=== PATIENT | female | born 1980 | race Caucasian/White ===

== ENCOUNTER 2024-12-28 19:39 | Emergency (ER) | payer OTHER, SELFPAY ==
[2024-12-28 19:47] VITALS: BP 144/99; PULSE 91; RESP 18; TEMP 36.7; O2SAT 100
--- NOTE | 2024-12-28 19:51 | ED.FEMALEGU ---
HPI - Female Genitourinary General Chief complaint: Urogenital-Female Stated complaint: UTI Time Seen by Provider: 12/28/24 19:52 Source: patient and RN notes reviewed Mode of arrival: ambulatory Limitations: no limitations History of Present Illness HPI Narrative: 44-year-old female presents to the [facility] with complaints of burning, urgency, frequency with urination that started on Wednesday. Did take an knrl-lfj-allodye medication that helps symptoms, symptoms were better yesterday, returned today. Did take azo prior to arrival. Onset (ago): day(s) (2) Related Data Allergies Allergy/AdvReac Type Severity Reaction Status Date / Time No Known Allergies Allergy Verified 12/28/24 19:41 Review of Systems Review of Systems: All systems reviewed & are unremarkable except as noted in HPI and below Constitutional: Constitutional: Reports no additional constitutional complaints ENT: Reports system reviewed and no additional complaints, except as documented Cardiovascular: Cardiovascular: Reports no additional cardiovascular complaints, Denies chest pain and Denies dyspnea Respiratory: Respiratory: Reports no additional respiratory complaints, Denies chest congestion, Denies cough and Denies dyspnea Genitourinary: Genitourinary: Reports as per HPI Musculoskeletal: Musculoskeletal: Reports no additional musculoskeletal complaints Integumentary/Breasts: Skin/Breast: Reports system reviewed and no additional complaints, except as docu PMFSH Comments At the time of my signature, I reviewed and agree with the nursing past medical, surgical, social, and family history. There is no relevant family history pertinent to the patient complaint. Exam Const: General: cooperative, healthy appearing, comfortable, no acute distress, well developed, alert and well nourished Nutritional Appearance: well nourished Orientation/consciousness: patient oriented x3 Limitations: no limitations HENMT: Head: normal to inspection Mouth: Yes Normal oral and palatal mucosa present, Yes lip normal, Yes tongue normal and Yes moist mucous membranes Eyes: General: appearance normal, both eyes and all related structures Alignment and Position: alignment normal Neck: Neck: normal visual inspection, full ROM, no lymphadenopathy and no meningeal signs Chest: Chest palpation & inspection: normal inspection of the chest Resp: Effort & Inspection: normal respiratory effort and able to speak in complete sentences Auscultation: clear to auscultation bilaterally, no crackles, no rales, no rhonchi and no wheezes Cardio: Rate: regular rate GI: GI Palp: No abdominal tenderness : General: Yes no CVA tenderness Skin: General skin exam: normal color and no rashes or lesions noted Neuro: General: patient oriented x3, gait normal, moves all extremities and no meningeal signs Cognition (Neuro): normal cognition Speech: normal speech Gait exam (Neuro): Normal gait present Extrem: General: normal to inspection, full ROM, capillary refill normal and normal gait Psych: Appearance: grossly normal and well kempt Mental Status: mental status grossly normal Speech and movement: Normal speech and movement present and Clear speech present Affect: normal affect Attitude: cooperative Course Course Level of Care: Express Care Visit Vital Signs Vital signs: Vital Signs Temperature 98.1 F 12/28/24 19:47 Pulse Rate 91 12/28/24 19:47 Respiratory Rate 18 12/28/24 19:47 Blood Pressure 144/99 H 12/28/24 19:47 Pulse Oximetry 100 12/28/24 19:47 Oxygen Delivery Room Air 12/28/24 19:47 Temperature 98.1 F 12/28/24 19:47 Pulse Rate 91 12/28/24 19:47 Respiratory Rate 18 12/28/24 19:47 Blood Pressure 144/99 H 12/28/24 19:47 Pulse Oximetry 100 12/28/24 19:47 Oxygen Delivery Room Air 12/28/24 19:47 Reviewed MDM - Female Genitourinary MDM Narrative Medical decision making narrative: Patient sitting in exam. Patient is nontoxic, vitals stable. Patient presents with urgency burning and frequency with urination. Started on Wednesday. Took nhdo-ugn-gdwjtmp medicine. Better on Wednesday. Symptoms returned today. Denies fevers. Unable to do urine dip due to patient taking azo just prior to arrival Will prescribe Macrobid, send culture Patient is appropriate for outpatient treatment with close follow-up Discharge instructions reviewed with patient, as well as provided in writing per nursing staff. The instructions also include specific and strict return/GO TO THE ER as well as f/u information. All questions have been answered, and the patient deny any further questions with discharge and discharge plan. Some parts of this dictation were generated by voice recognition software and may contain typographical and/or grammatical inaccuracies. Differential Diagnosis Differential diagnosis: Likely urinary tract infection and cystitis Critical Care Time Critical Care Time Critical Care Time: No Discharge Plan Discharge Clinical Impression: Dysuria Patient Disposition: Home Condition: Stable Instructions: Antibiotic Form, Urinary Tract Infection in Women (DC), Dysuria (ED) Additional Instructions: Increased water intake Take Tylenol as needed for pain Take antibiotic as prescribed You have been prescribed an antibiotic. Your urine will be sent to our lab for a culture. If at that time a bacteria grows that is not covered by the antibiotic prescribed you will be notified. Follow-up with primary care For new or worsening symptoms go directly to the emergency room Patient Language: Slovak Prescriptions: New nitrofurantoin monohyd/m-cryst [Macrobid] 100 mg capsule 100 mg PO Q12H 5 Days Qty: 10 0RF Rx Instructions: must administer with a meal/food Follow-up/Referrals: PHYSICIAN,REVERBERATORY FURNACE OPERATOR [Primary Care Provider, Internal Medicine] Time of Disposition: 19:58
--- OUTSIDE RECORDS SUMMARY | 2024-12-28 21:19 | XMS_ITS | Encounter Summary ---
Author Organization [facility] Address 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
--- OUTSIDE RECORDS SUMMARY | 2024-12-28 21:19 | XMS_ITS | Data Portability ---
Author Organization [employer], [facility] Address [address] [address] Care Team Providers Care Police And Fire Dispatcher Name Role Phone LILIA GONCALVES Primary Care Provider Assessment No assessment recorded. Plan of Treatment Reminders Order Date Submit Date Provider Last Modified By Organization Details Last Modified Time Details Appointments None recorded. Lab None recorded. Referral None recorded. Procedures injection/a spiration joint/bursa (PROC) 2013 014 [email or web address] Not available 4 15:00:01 Surgeries None recorded. Imaging x-ray, cervical spine - Rm 5 2013 014 [email or web address] Not available 4 16:21:38 MRI, shoulder - r/o RTC 2013 014 BERNADETTE Not available 4 14:13:44 ultrasonic guidance for needle placement 2013 014 [email or web address] Not available 4 15:00:01 Medication Orders Depo-Medrol 40 mg/mL suspension for injection 2013 014 Not available 7 09:44:48 Patient TargetsNo targets recorded. Patient InstructionsNo instructions recorded. Reason for Referral None Reported. Results Created Date Observation Date Name Description Value Unit Range Abnormal Flag Note LastModifiedBy Organization Detail LastModifiedTime 06/09/19 14 06/08/2013 imagi ng/di agnos tic resul t No observ ation [email or web address] [address], [place], [address], 06/09/2013 08:37:11 07/12/19 14 07/10/2013 MRI, shoul charley No observ ation record ed. [email or web address] Not Available 2013 14:23:57 Result Notes None recorded. Problems Name Problem SNOMED Code Status Onset Date Resolution Date Notes Provider Name and Address Organization Details Recorded Time Pain of shoulder region 62930116 Active Binta Lamasckel null, [facility] [employer] [facility], [facility] 4 10:50:56 Joint pain in ankle and foot Active Binta Brockel null, [facility] [employer] [facility], [facility] 4 08:55:05 Tarsal tunnel syndrome 66647255 Active Bintaprashant Lamasckbarrera null, [facility], [facility] 4 10:42:14 Shoulder joint pain 254663372 Active Binta Emery null, [employer] [facility], [facility] 4 08:55:05 Neck pain 58123764 Active Padmini Kim [facility], [employer] [facility], [facility] 4 10:50:10 Problem Notes None recorded. Procedures Surgical History Date Name Laterality Status Provider Name and Address Organization Details Recorded Time 10/18/2013 Other completed Darnell Cid [facility] 12/10/2016 09:43:43 Imaging Results None recorded. Procedure Notes None recorded. Medical Equipment None Reported. Allergies No known drug allergies Medications Name Sig Start Date Stop Date Status Note LastModified by Organization Details LastModified Time compounded medication apply 1-2 gms to affected area 3-4 times daily. rub in well for 1-2 mins 12/10 completed Not Available Not Available Not Available Depo-Medrol 40 mg/mL suspension for injection Take by injection route. 12/10 completed Not Available Not Available Not Available baclofen (bulk) 100 % powder 12/10 completed Not Available Not Available Not Available azithromyci n 250 mg tablet 12/10 completed Not Available Not Available Not Available fluconazole 150 mg tablet 12/10 completed Not Available Not Available Not Available clomiphene citrate 50 mg tablet 12/10 completed Not Available Not Available Not Available Claritin 10 mg tablet Take 0.5 tablets every 24 hours by oral route. 12/10 completed Not Available Not Available Not Available metronidazo le 0.75 % (37.5 mg/5 gram) vaginal gel 12/10 completed Not Available Not Available Not Available Anucort-HC 25 mg suppository 12/10 completed Not Available Not Available Not Available metronidazo le 500 mg tablet 12/10 completed Not Available Not Available Not Available ciprofloxac in 250 mg tablet 12/10 completed Not Available Not Available Not Available valacyclovi r 500 mg tablet 12/10 completed Not Available Not Available Not Available ciprofloxac in 500 mg tablet 12/10 completed Not Available Not Available Not Available sulfamethox azole 800 mg-trimetho prim 160 mg tablet 12/10 completed Not Available Not Available Not Available progesteron e 50 mg/mL intramuscul ar oil 12/10 completed Not Available Not Available Not Available triamcinolo ne acetonide 0.1 % dental paste 12/10 completed Not Available Not Available Not Available chorionic gonadotropi n, human 10,000 unit IM powder for solution 12/10 completed Not Available Not Available Not Available triamcinolo ne acetonide 0.1 % topical ointment 12/10 completed Not Available Not Available Not Available dexamethaso ne 0.75 mg tablet 12/10 completed Not Available Not Available Not Available etodolac 500 mg tablet Take 1 tablet twice a day by oral route. 12/10 completed Not Available Not Available Not Available Estrace 0.01% (0.1 mg/gram) vaginal cream 12/10 completed Not Available Not Available Not Available Woodbine 3 Fish Oil capsule Take 2 capsules twice a day by oral route. 12/10 completed Not Available Not Available Not Available Ovidrel 250 mcg/0.5 mL subcutaneou s syringe 12/10 completed Not Available Not Available Not Available Follistim AQ 600 unit/0.72 mL subcutaneou s cartridge 12/10 completed Not Available Not Available Not Available nitrofurant oin monohydrate /macrocryst als 100 mg capsule 12/10 completed Not Available Not Available Not Available Menopur 75 unit subcutaneou s solution 12/10 completed Not Available Not Available Not Available Reclipsen (28) 0.15 mg-0.03 mg tablet 12/10 completed Not Available Not Available Not Available Vitamin 12/10 completed Not Available Not Available Not Available Calcium 600 + D(3) 12/10 completed Not Available Not Available Not Available Vitals Date Recorded Body height Body mass index (BMI) Body weight Heart rate Systolic And Diastolic Provider Name and Address Organization Details Last Updated DateTime 12/10/2016 162.56 cm 24 kg/m2 54565.93 g 75 /min 113/72 mm[Hg] Darnell Cid [employer] 12/10/2016 09:39:34 Social History Question Answer Notes LastModified by Organizat ion Details LastModified Time Tobacco Smoking Status Never Smoker Darnell Cid [employer] 04/13/2013 08:54:57 Do You Have An Advance Directive? No Information not available 04/13/2013 Auto Related Injury? No Information not available 04/13/2013 What Is Your Level Of Caffeine Consumption? Heavy Information not available 04/13/2013 How Much Tobacco Do You Chew? None Information not available 04/13/2013 Diabetes No Information no t available 04/13/2013 What Type Of Diet Are You Following? REGULAR Information not available 04/13/2013 Education 4 Year College Informatio n not available 04/13/2013 Who Is Your Employer? [employer]. Information not available 04/13/2013 Which Of Your Hands Is Dominant? Right Information not available 04/13/2013 Hard Of Hearing Or Deaf In One Or Both Ears? No Information not available 04/13/2013 High Blood Pressure No Information not available 04/13/2013 High Cholesterol No Informat ion not available 04/13/2013 Hobbies/Activiti es Crossfit, Hot Yoga, Running Information not available 04/13/2013 Single Or Multi-level Home/work? Multi Level Home Information not available 04/13/2013 Legally Blind In One Or Both Eyes? No Information not available 04/13/2013 Live Alone Or With Others? With Others Information not available 04/13/2013 Marital Status Informatio n not available 04/13/2013 What Was The Date Of Your Most Recent Tobacco Screening? 12/10/2016 Information not available 09/15/2018 How Many Children Do You Have? 0 Information not available 04/13/2013 If Injured, Is Litigation Ongoing? No Information not available 04/13/2013 What Is Your Parents' Marital Status? Information not available 04/13/2013 Performs Monthly Self-breast Exam? No Information not available 04/13/2013 Do You Use Protection During Sex? No Information not available 04/13/2013 Seat Belts Used Routinely Yes Information not available 04/13/2013 Are You Sexually Active? Yes Information not available 04/13/2013 Number Of Sexual Partners 1 Information not available 04/13/2013 Smoke Alarm In Home Yes Information not available 04/13/2013 How Much Tobacco Do You Smoke? No Information not available 04/13/2013 What Types Of Sporting Activities Do You Participate In? Running, Yoga Information not available 12/10/2016 General Stress Level Low Information not available 04/13/2013 Do You Use Sunscreen Routinely? No Information not available 04/13/2013 Work Related Injury? No Information not available 04/13/2013 Sex: Unknown Functional Status Question Answer Note LastModified by Organizat ion Details LastModified Time What is your level of alcohol consumption? Occasional Information not available 04/13/2013 Are you currently employed? 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 Moderate Information not available 04/13/2013 Mental Status None recorded. Family History Relationship Description Onset Age of this Age Resolved Age Notes LastModified by Organization Details LastModified Time Maternal Grandmother Alzheimer's disease 78 Not available 2013 08:54:02 Paternal Grandfather Arthritis 80 Not available 03/26 08:54:02 Paternal Grandfather Heart disease Not available 2013 08:54:02 Paternal Grandmother Heart disease Not available 2013 08:54:02 Paternal Grandmother Diabetes mellitus 60 83 Not available 2013 08:54:02 Medical History Condition Response HIV or AIDS N Coronary Artery Disease N Gout N Kidney Stones N Hyperthyroidism N Hernia N Head Trauma/Injury N Hypothyroidism N Lung Disease N Blood Clots N COPD N Depression N Pacemaker N Anxiety Disorder N Arthritis N Cancer N Stroke N Leg or Foot Ulcers N Neck Injury N High Cholesterol N Liver Disease N Rheumatoid Arthritis N Fibromyalgia N Headaches N Kidney Disease N Heart Problems N Migraines N Thyroid Problems N Anemia N Multiple Sclerosis N Ulcers N Heart Attack ([place]) N Diabetes N Bleeding Disorder N Seizures/Epilepsy N Tuberculosis N Urinary Tract Infection N Back Problems N Diverticulitis N Asthma N Lupus N Peripheral Vascular Disease N Sleep Disorder N GERD/Reflux N Hepatitis N Aneurysm N Heart Disease N Pulmonary Embolism N Hypertension N Osteoporosis N Gynecological HistoryNo gynecological history recorded. Obstetrics History GPAL:G 0 P 0 0 0 0 Immunizations Vaccine Type Date Status Note Provider Nam e and Address Organization Details Recorded Time DTaP 6 completed Darnell Cid [employer] 12/10/2016 09:43:56 Influenza, split virus, trivalent, preservative 6 completed [employer]ellsathya [employer] 12/10/2016 09:43:56 Influenza, split virus, trivalent, preservative 3 completed Darnell [employer] 12/10/2016 09:43:56 Past Encounters Encounter ID Performer Location Encounter Start Date Encounter Closed Date Diagnosis/Indication Diagnosis SNOMED-CT Code Diagnosis ICD10 Code Diagnosis IMO Codes Diagnosis Note [id number] Harley Gill MD [facility] [address] [place] [address] 04/13/2013 08:50:49 04/13/2013 10:04:11 Pain of shoulder region 77212557 Joint pain in ankle and foot 057559802 [id number] Harley Gill MD [facility] [address] [place] [address] 04/19/2013 08:38:42 04/19/2013 09:30:04 Tarsal tunnel syndrome 12134080 [id number] Harley Gill MD [facility] [address] [place] [address] 05/24/2013 08:37:22 05/24/2013 09:27:08 Shoulder joint pain 551328113 Joint pain in ankle and foot 136074608 [id number] Harley Gill MD [facility] [address] [place] [address] 07/05/2013 08:59:37 07/05/2013 16:56:56 Pain of shoulder region 08297346 [id number] Harley Gill MD [facility] [address] [place], [place] [address] 08/08/2013 13:56:30 08/08/2013 15:00:28 Pain of shoulder region 87545453 [id number] Harley Gill MD [facility] [address] [place] [address] 09/19/2013 09:48:29 09/19/2013 11:34:50 Neck pain 55049752 [id number] Harley Gill MD [facility] [address] [place] [address] 12/10/2016 09:16:54 12/10/2016 12:11:13 Health Concerns Section Related Observation LastModified by Organization Detai ls LastModified Time None Recorded Concern Status LastModified by Organization Details LastModified Time None Recorded Advance Directives Directive N: Payers Insurance Date Sequence Insurance Name Policy Number Policy Kent Covered Member ID Kent Member ID Guarantor Name 12/10/2016 1 [facility] [id number] Maria C Vaughn [id number] Maria C Vaughn OBGyn Episode No OBEpisode recorded.
--- OUTSIDE RECORDS SUMMARY | 2024-12-28 21:19 | XMS_ITS | Data Portability ---
Author Organization [facility], Main Office Address [address] [place] [address] Assessment No assessment recorded. Plan of Treatment Reminders Order Date Submit Date Provider Last Modified By Organization Details Last Modified Time Details Appointments None recorded. Lab BORIS (antinucl ear antibodie s) screen, serum [address] (Lab), [address] [place], [address], 3 08:11:11 lipid panel, serum [address] (Lab), [address] [place], [address], 3 08:11:11 TSH, serum or plasma [address] (Lab), [address] [place], [address], 3 08:11:11 CMP, serum or plasma [address] (Lab), [address] [place], [address], 3 08:11:11 glycohemo globin, total, blood [address] (Lab), [address] [place], [address], 3 08:11:11 CBC w/ auto diff [address] (Lab), [address] [place], [address], 3 08:11:10 vitamin B12, serum [address] (Lab), [address] [place], [address], 3 08:11:11 Referral None recorded. Procedures None recorded. Surgeries None recorded. Imaging None recorded. Medication Orders None recorded. Patient TargetsNo targets recorded. Patient Instructions Encounter Date Encounter Id Patient Instructions Last Modified By Organization Details Last Modified Time 12/01/2022 [id number] Fu in 1 mo for fatigue, labs, family history of dm, colon ca, etc. Not available 12/01/2022 15:16:46 Reason for Referral None Reported. Results Created Date Observation Date Name Description Value Unit Range Abnormal Flag Note LastModifiedBy Organization Detail LastModifiedTime 12/22/1912/25/2022 LIPID PANEL , STAND EMEKA cholesterol, total 133 mg/dL <200 normal Not Available [facility] [employer] [address] [address] [place], [address], 12/25/2022 12:56:17 12/22/19 23 12/25/2022 LIPID PANEL , STAND EMEKA HDL cholesterol 36 mg/dL > or = 50 low Not Available [employer] [address] [address] [place], [address], 12/25/2022 12:56:17 12/22/19 23 12/25/2022 LIPID PANEL , STAND EMEKA triglyceride s 69 mg/dL <150 normal Not Available [employer] [address] [address] [place], [address], 12/25/2022 12:56:17 12/22/19 23 12/25/2022 LIPID PANEL , STAND EMEKA LDL-choleste rol 82 mg/dL _(yanick c) normal Refer ence range : <100 Kip able range <100 mg/dL for prima ry preve ntion ; <70 mg/dL for patie nts with CHD or diabe tic patie nts with > or = 2 CHD risk facto rs. LDL-C is now calcu lated using the Iveth n-Hop kins calcu josianebritta n, which is a valid ated novel metho d provi ding murray r accur acy than the Fried karo equat ion in the estim ation of LDL-C . Iveth garcia SS et al. TARAS. 2013; 310(1 9): 2061- 206 (http ://ed ucati on.Qu estDi Kurani [employer]. com/f aq/FA Q164) Not Available [facility] [address] [address] [place], [address], 12/25/2022 12:56:17 12/22/1912/25/2022 LIPID PANEL , STAND EMEKA chol/HDLC ratio 3.7 (calc ) <5.0 normal Not Available [address] [address] [place], [address], 12/25/2022 12:56:17 12/22/1912/25/2022 LIPID PANEL , STAND EMEKA non HDL cholesterol 97 mg/dL _(yanick c) <130 normal For patie nts with diabe ricardo plus 1 major ASCVD risk facto r, treat ing to a non-H DL-C goal of <100 mg/dL (LDL- C of <70 mg/dL ) is consi dered a thera peuti c optio n. Not Available [employer] [address] [address] [address], [place], [address], 12/25/2022 12:56:17 12/22/1912/25/2022 COMPR EHENS GLENN METAB OLIC PANEL glucose 95 mg/dL 65-99 normal Fasti ng refer ence inter marco Not Available [facility] [address] [address] [address], [place], [address], 12/25/2022 12:56:18 12/22/1912/25/2022 COMPR EHENS GLENN METAB OLIC PANEL urea nitrogen (BUN) 7 mg/dL 7-25 normal Not Available [address], [address], 12/25/2022 12:56:18 12/22/19 23 12/25/2022 COMPR EHENS GLENN METAB OLIC PANEL creatinine 0.71 mg/dL 0.50-0 .99 normal Not Available [address], [address], 12/25/2022 12:56:18 12/22/19 23 12/25/2022 COMPR EHENS GLENN METAB OLIC PANEL eGFR 109 mL/mi n/1.7 3m2 > or = 60 normal Not Available [address], [address], 12/25/2022 12:56:18 12/22/19 23 12/25/2022 COMPR EHENS GLENN METAB OLIC PANEL BUN/creatini ne ratio SEE NOTE: (calc ) 6-22 Not Repor yodit: BUN and Creat inine are withi n refer ence range . Not Available [address], [address], 12/25/2022 12:56:18 12/22/19 23 12/25/2022 COMPR EHENS GLENN METAB OLIC PANEL sodium 140 mmol/ L 135-14 6 normal Not Available [address], [address], 12/25/2022 12:56:18 12/22/19 23 12/25/2022 COMPR EHENS GLENN METAB OLIC PANEL potassium 3.8 mmol/ L 3.5-5. 3 normal Not Available [address], [address], 12/25/2022 12:56:18 12/22/19 23 12/25/2022 COMPR EHENS GLENN METAB OLIC PANEL chloride 104 mmol/ L 98-110 normal Not Available [address], [address], 12/25/2022 12:56:18 12/22/19 23 12/25/2022 COMPR EHENS GLENN METAB OLIC PANEL carbon dioxide 28 mmol/ L 20-32 normal Not Available [address], [address], 12/25/2022 12:56:18 12/22/19 23 12/25/2022 COMPR EHENS GLENN METAB OLIC PANEL calcium 8.8 mg/dL 8.6-10 .2 normal Not Available [address], [address], 12/25/2022 12:56:18 12/22/19 23 12/25/2022 COMPR EHENS GLENN METAB OLIC PANEL protein, total 7.1 g/dL 6.1-8. 1 normal Not Available [address], [address], 12/25/2022 12:56:18 12/22/19 23 12/25/2022 COMPR EHENS GLENN METAB OLIC PANEL albumin 4.2 g/dL 3.6-5. 1 normal Not Available [address], [address], 12/25/2022 12:56:18 12/22/19 23 12/25/2022 COMPR EHENS GLENN METAB OLIC PANEL globulin 2.9 g/dL_ (calc ) 1.9-3. 7 normal Not Available [address], [address], 12/25/2022 12:56:18 12/22/19 23 12/25/2022 COMPR EHENS GLENN METAB OLIC PANEL albumin/glob ulin ratio 1.4 (calc ) 1.0-2. 5 normal Not Available [address], [address], 12/25/2022 12:56:18 12/22/19 23 12/25/2022 COMPR EHENS GLENN METAB OLIC PANEL bilirubin, total 0.3 mg/dL 0.2-1. 2 normal Not Available [address], [address], 12/25/2022 12:56:18 12/22/19 23 12/25/2022 COMPR EHENS GLENN METAB OLIC PANEL alkaline phosphatase 72 U/L 31-125 normal Not Available [address] [address] [place], [address], 12/25/2022 12:56:18 12/22/19 23 12/25/2022 COMPR EHENS GLENN METAB OLIC PANEL AST 14 U/L 10-30 normal Not Available [address], [address], 12/25/2022 12:56:18 12/22/19 23 12/25/2022 COMPR EHENS GLENN METAB OLIC PANEL ALT 8 U/L 6-29 normal Not Available [address], [address], 12/25/2022 12:56:18 12/22/19 23 12/25/2022 CBC (INCL UDES DIFF/ PLT) white blood cell count 9.7 thous and/u L 3.8-10 .8 normal Not Available [address], [address], 12/25/2022 12:56:19 12/22/1912/25/2022 CBC (INCL UDES DIFF/ PLT) red blood cell count 3.91 catalina on/uL 3.80-5 .10 normal Not Available [address], [address], 12/25/2022 12:56:19 12/22/19 23 12/25/2022 CBC (INCL UDES DIFF/ PLT) hemoglobin 11.1 g/dL 11.7-1 5.5 low Not Available [address], [address], 12/25/2022 12:56:19 12/22/19 23 12/25/2022 CBC (INCL UDES DIFF/ PLT) hematocrit 33.9 % 35.0-4 5.0 low Not Available [address], [address], 12/25/2022 12:56:19 12/22/19 23 12/25/2022 CBC (INCL UDES DIFF/ PLT) MCV 86.7 fL 80.0-1 00.0 normal Not Available [address], [address], 12/25/2022 12:56:19 12/22/19 23 12/25/2022 CBC (INCL UDES DIFF/ PLT) MCH 28.4 pg 27.0-3 3.0 normal Not Available [address], [address], 12/25/2022 12:56:19 12/22/19 23 12/25/2022 CBC (INCL UDES DIFF/ PLT) MCHC 32.7 g/dL 32.0-3 6.0 normal Not Available [address], [address], 12/25/2022 12:56:19 12/22/19 23 12/25/2022 CBC (INCL UDES DIFF/ PLT) RDW 12.3 % 11.0-1 5.0 normal Not Available [address], [address], 12/25/2022 12:56:19 12/22/19 23 12/25/2022 CBC (INCL UDES DIFF/ PLT) platelet count 312 thous and/u L 140-40 0 normal Not Available [address], [address], 12/25/2022 12:56:19 12/22/1912/25/2022 CBC (INCL UDES DIFF/ PLT) MPV 11.1 fL 7.5-12 .5 normal Not Available [address], [address], 12/25/2022 12:56:19 12/22/1912/25/2022 CBC (INCL UDES DIFF/ PLT) absolute neutrophils 7421 cells /uL 1500-7 800 normal Not Available [address], [address], 12/25/2022 12:56:19 12/22/1912/25/2022 CBC (INCL UDES DIFF/ PLT) absolute lymphocytes 1552 cells /uL 850-39 00 normal Not Available [address], [address], 12/25/2022 12:56:19 12/22/19 23 12/25/2022 CBC (INCL UDES DIFF/ PLT) absolute monocytes 553 cells /uL 200-95 0 normal Not Available [address], [address], 12/25/2022 12:56:19 12/22/19 23 12/25/2022 CBC (INCL UDES DIFF/ PLT) absolute eosinophils 146 cells /uL 15-500 normal Not Available [address], [address], 12/25/2022 12:56:19 12/22/1912/25/2022 CBC (INCL UDES DIFF/ PLT) absolute basophils 29 cells /uL 0-200 normal Not Available [address], [address], 12/25/2022 12:56:19 12/22/19 23 12/25/2022 CBC (INCL UDES DIFF/ PLT) neutrophils 76.5 % normal Not Available [facility] [place] [place] [address] [place], [address], 12/25/2022 12:56:19 12/22/19 23 12/25/2022 CBC (INCL UDES DIFF/ PLT) lymphocytes 16.0 % normal Not Available [address], [address], 12/25/2022 12:56:19 12/22/19 23 12/25/2022 CBC (INCL UDES DIFF/ PLT) monocytes 5.7 % normal Not Available [facility] [address] [place], [address], 12/25/2022 12:56:19 12/22/19 23 12/25/2022 CBC (INCL UDES DIFF/ PLT) eosinophils 1.5 % normal Not Available [address], [address], 12/25/2022 12:56:19 12/22/19 23 12/25/2022 CBC (INCL UDES DIFF/ PLT) basophils 0.3 % normal Not Available [address], [address], 12/25/2022 12:56:19 12/22/19 23 12/25/2022 BORIS SCREE N, IFA, W/REF L TITER AND TIARA WISE BORIS screen, ifa POSITI VE negati ve abnormal BORIS IFA is a first line scree n for detec ting the prese nce of up to appro ximat codi 150 autoa ntibo dies in vario us autoi mmune disea ses. A posit glenn BORIS IFA resul t is sugge stive of autoi mmune disea se and refle xes to titer and tiara wise. Furth er labor atory testi ng may be consi dered if clini eugenio indic ated. For addit ional infor philip reina e refer to http: //ellen garcia.Que stDia gnost ics.c om/fa q/FAQ 177 (This link is being provi ded for infor matio nal/ educa umer l purpo ses only. ) Not Available [address] [address] [place], [address], 12/25/2022 12:56:21 12/22/19 23 12/25/2022 ANTIN UCLEA R ANTIB ODIES TITER AND PATTE RN BORIS titer 1:80 titer high A low level BORIS titer may be prese nt in pre-c linic al autoi mmune disea ses and douglas l indiv idual s. Refer ence Range <1:40 Negat glenn 1:40- 1:80 Low Antib marla Level >1:80 Carolina yodit Antib marla Level Not Available [address] [address] [place], [address], 12/25/2022 12:56:21 12/22/19 23 12/25/2022 ANTIN UCLEA R ANTIB ODIES TITER AND PATTE RN BORIS pattern Nuclea r, Speckl ed abnormal Speck led smoothte rn is assoc iated with mixed conne ctive tissu e disea se (MCTD ), syste nellie lupus eryth emato [place] (SLE) , Sjogr en's syndr ome, derma tomyo sitis , and syste nellie scler osis/ polym yosit is overl ap. AC-2, 4,5,2 9: Speck led Inter natio nal Conse nsus on BORIS Patte rns (http s://d oi.or g/10. 1515/ cclm- 2017- 0052) Not Available [address] [address] [place], [address], 12/25/2022 12:56:21 12/22/19 23 12/25/2022 VITAM IN B12 vitamin B12 416 pg/mL 200-11 00 normal Not Available [address] [address] [place], [address], 12/25/2022 12:56:21 12/22/19 23 12/25/2022 TSH W/REF LISA TO FT4 TSH w/reflex to FT4 2.54 mIU/L normal Refer ence Range > or = 20 Years 0.40- 4.50 Pregn kenyon Range s First trime ster 0.26- 2.66 Secon d trime ster 0.55- 2.73 Third trime ster 0.43- 2.91 Not Available [facility] [address] [place], [address], 12/25/2022 12:56:22 12/22/19 23 12/25/2022 HEMOG LOBIN A1C hemoglobin A1C 5.3 %_of_ total _HGB <5.7 normal For the purpo se of screrenata amor for the prese nce of diabe ricardo: <5.7% Consi stent with the absen ce of diabe ricardo 5.7-6 .4% Consi stent with incre ased risk for diabe ricardo (pred iabet es) > or =6.5% Consi stent with diabe ricardo This assay resul t is consi stent with a decre ased risk of diabe ricardo. Curre ntly, no conse nsus exist s rosetta thomas use of hemog lobin A1c for diagn osis of diabe ricardo in child richar. Accor ding to Ameri can Diabe ricardo Assoc iatio n (ADA) guide lines , hemog lobin A1c <7.0% repre sents optim al contr ol in non-p regna nt diabe tic patie nts. Diffe rent metri cs may apply to speci fic patie nt popul ation s. Stand ards of Medic al Care in Diabe ricardo(A DA). Not Available [facility] [address] [address], [place], [address], 12/25/2022 12:56:23 Result Notes None recorded. Problems Name Problem SNOMED Code Status Onset Date Resolution Date Notes Provider Name and Address Organization Details Recorded Time Internal hemorrhoids 70228197 Active 2022 Francoise Horan NP [address] [facility], [address], [place], [address], [place] - [facility] 3 15:02:20 Fatigue 43082841 Active 2022 Francoise oHran NP [address] [facility], [address] [address], [place], [address], [facility] [employer] [facility] 3 15:13:00 Disorder of menstruation 576966647 Active 2022 Francoise Horan NP [address] [facility], [address] [address], [place], [address], [facility] [employer] [facility] [employer] 3 15:14:13 Anti-nuclear factor detected 686334000 Active 2022 Francoise Horan NP [address] [facility], [address] [address], [place], [address], [facility] [employer] [facility] 3 14:04:07 Problem Notes None recorded. Medical Equipment None Reported. Allergies No known drug allergies Medications Not known to be on any medication Vitals Date Recorded Body weight Body mass index (BMI) Body height Body temperature Heart rate Respiratory rate Oxygen saturation Oxygen saturation in Arterial blood by Pulse oximetry Pain severity - 0-10 verbal numeric rating [Score] - Reported Systolic And Diastolic Provider Name and Address Organization Details Last Updated DateTime 3 [address].4 3 g 25.5 kg/m2 165.1 cm 96.7 [degF] 79 /min 16 /min 99 % 99 % 0 120/68 mm[Hg] Francoise Salinas RN [facility] Andel [facility] 3 14:35:01 Social History Question Answer Notes LastModified by Organizat ion Details LastModified Time Tobacco Smoking Status Never Smoker Francoise Salinas RN [facility], [facility] Andel [facility] 12/01/2022 14:40:07 Do You Have An Advance Directive? No Information not available 12/01/2022 Is Blood Transfusion Acceptable In An Emergency? Yes Information not available 12/01/2022 What Is Your Level Of Caffeine Consumption? Heavy Coffee, Soda, Tea Information not available 12/01/2022 What Is Your Code Status? Full Code [email or web address] Information not available 12/01/2022 In The 14 Days Before Symptom Onset, Have You Had Close Contact With A Laboratory-sugey catherineed COVID-19 While That Case Was Ill? No Information not available 12/01/2022 In The 14 Days Before Symptom Onset, Have You Had Close Contact With A Person Who Is Under Investigation For COVID-19 While That Person Was Ill? No Information not available 12/01/2022 What Type Of Diet Are You Following? REGULAR Information not available 12/01/2022 How Many Days Of Moderate To Strenuous Exercise, Like A Brisk Walk, Did You Do In The Last 7 Days? 2 Information not available 12/01/2022 On Those Days That You Engage In Moderate To Strenuous Exercise, How Many Minutes, On Average, Do You Exercise? 45 Information not available 12/01/2022 Have There Been Any Changes To Your Family Or Social Situation? No Information not available 12/01/2022 Do You Use Insect Repellent Routinely? No Information not available 12/01/2022 Where Do You Live? [facility] Information not available 12/01/2022 Do You Have A Medical Power Of Physician General Internal Medicine? No Information not available 12/01/2022 How Many Children Do You Have? 1 Information not available 12/01/2022 Do You Have Any Pets? No Information not available 12/01/2022 What Is Your Relationship Status? Information not available 12/01/2022 Do You Use Your Seat Belt Or Car Seat Routinely? Yes Information not available 12/01/2022 Do You Have Smoke And Carbon Monoxide Detectors In Your Home? Yes Information not available 12/01/2022 Are There Any Smokers In Your House? No Information not available 12/01/2022 Do You Participate In Social Media? Yes Information not available 12/01/2022 What Types Of Sporting Activities Do You Participate In? Run Information not available 12/01/2022 Do You Use Sunscreen Routinely? Yes Information not available 12/01/2022 Have You Recently Traveled Abroad? No Information not available 12/01/2022 Sex: Unknown Functional Status Question Answer Note LastModified by Organizat ion Details LastModified Time What is your level of alcohol consumption? None Information not available 12/01/2022 Are you currently employed? No Information not available 12/01/2022 What is your exercise level? Occasional Information not available 12/01/2022 Mental Status Question Answer Note LastModified by Organization D etails LastModified Time Do you feel stressed (tense, restless, nervous, or anxious, or unable to sleep at night)? PG8045-7 Information not available 12/01/2022 Family History Relationship Description Onset Age of this Age Resolved Age Notes LastModified by Organization Details LastModified Time Mother Sj gren's syndrome Not available 2022 14:35:28 Mother Relapsing polychondrit is Not available 2022 14:35:50 Mother Diabetes mellitus Not available 2022 14:36:06 Mother Hypertensive disorder Not available 2022 14:36:54 Mother Hypercholest erolemia Not available 2022 14:37:19 Mother Goiter Not available 14:38:03 Father Diabetes mellitus Not available 2022 14:36:06 Father Hypertensive disorder Not available 2022 14:36:54 Father Hypercholest erolemia Not available 2022 14:37:13 Sister Goiter Not available 14:38:03 Maternal Grandfather Malignant neoplasm of colon matern al cousin with polyps Not available 12/01/2022 15:00:21 Medical History No medical history recorded. Gynecological History Statement/Question Response Flow Heavy Date of LMP 11/22/2022 Duration of Flow (days) 10 Current Control Method IUD Age at Menarche 14 Most Recent Mammogram Date of Last Colonoscopy Frequency of Cycle (Q days) 28 Most Recent Bone Density Menses Monthly Y Date of Last Pap Smear Obstetrics History GPAL:G 0 P 0 0 0 0 Immunizations Vaccine Type Date Status Note Provider Nam e and Address Organization Details Recorded Time Influenza, split virus, quadrivalent, PF 12/01/2022 completed Francoise Salinas RN null, [place] - [facility] 12/01/2022 15:45:34 Past Encounters Encounter ID Performer Location Encounter Start Date Encounter Closed Date Diagnosis/Indication Diagnosis SNOMED-CT Code Diagnosis ICD10 Code Diagnosis IMO Codes Diagnosis Note [id number] Francoise Horan NP [facility] [address] [address] 12/01/2022 14:25:06 12/01/2022 15:35:00 Administration of influenza vaccine 98711879 Z23 Internal hemorrhoids 904 [address] K64.8 maternal grandfathe r, maternal cousin.His tory labs colonoscop y age 30. Anemia screening 8612758 07 Z13.0 Diabetes m ellitus screening 310508105 Z13.1 Thyroid di sorder screening 373527482 Z13.29 Hyperlipid emia screening 066899380 Z13.220 Fatigue 92500553 R53.83 labs ordered. Work on well balanced meals. Disorder o f menstruation 520176168 N92.6 boris high in the past. Health Concerns Section Related Observation LastModified by Organization Detai ls LastModified Time None Recorded Concern Status LastModified by Organization Details LastModified Time None Recorded Advance Directives Directive N: Payers Insurance Date Sequence Insurance Name Policy Number Policy Kent Covered Member ID Kent Member ID Guarantor Name 09/23/2023 [facility] Maria C Vinson SELF SELF Maria C Toddock 12/01/2022 1 [employer] [id number] Shashi Toddock [id number] Maria C Vinson Notes Date Note Type Note Provider Name and Address Organization Details Recorded Time 12/01/2022 text/html New patient appt Has gained weight about 10 lbs previous to having baby.Lab- 2020. Hx blood and protein in urine. Elevated BORIS (mother has dm and sjogrens and relapsing polychondritis) Has 4 yo and 'work at home' mom. Some fatigue. History of blood in stool. Had 2 colonoscopies in the past. Last was in 30s. Last was > 10 yr. Diarrhea and nauseated. Francoise Horan NP [address] [facility], [facility] [address], [place], [address], [place] [facility] 12/01/2022 15:21:47 OBGyn Episode No OBEpisode recorded.
--- OUTSIDE RECORDS SUMMARY | 2024-12-28 21:19 | XMS_ITS | Encounter Summary ---
Author Organization [facility] Address [address] [place] [address] Care Team Providers Care Stage Rigger Name Role Phone Unavailable Primary Care Provider Unavailabl e Encounter Details Date Type Department Care Team (Late st Contact Info) Description 10/14/2007 Outpatient Historical [facility] Gabriela Tsang MD [address] [facility] [address] [place] [address] Urinary Frequency; Hematuria Social History Tobacco Use Types Packs/Day Years Used Date Smoking Tobacco: Never Assessed Comments Unknown Sex and Gender Information Value Date Recorded Sex Assigned at Female 08/05/2023 2:59 AM CDT Legal 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 Gender Identity Female 08/05/2023 2:59 AM CDT Sexual Orientation Straight 08/05/2023 2: 59 AM CDT documented as of this encounter Plan of Treatment Not on file documented as of this encounter Procedures Procedure Name Priority Date/Time Associated Diagnosis Comments US RETROPERITONEAL COMPLETE Timed Study 10/14/2007 9:50 AM CDT documented in this encounter Results * US RETROPERITONEAL COMPLETE (10/14/2007 9:50 AM CDT) Anatomical Region Laterality Modality Pelvis Other 10/14/2007 9:50 AM CDT Narrative 10/14/2007 11:02 AM CDT [facility] [address] [place], [place] [address] Admit Date: 10/14/2007 EJ BECKER Sex: F Admit Prov: GABRIELA TSANG Date: 1980 Primary Care Prov: PCP, UNKNOWN CMRN: [id number] Room: [facility]: [address] [place] [address] IMAGING SERVICES Ordering Prov: N/A Accession Number: [id number] Interpretation EXAMINATION: ULTRASOUND RETROPERITONEUM. 10/14/2007 Clinical History: Urinary frequency. Findings: The kidneys are normal in size and echotexture. Right kidney measures 10.6 and the left kidney 10.4 cm in greatest dimension. There is no collecting system dilation or distinct renal calculus. Small 4 mm cyst projects from the superior right renal pole, of no clinical significance. Impression: Sonographically normal kidneys and bladder. . Dictated by: Sage CASTELAN 10/14/2007 10:01 Electronically signed by: Sage CASTELAN 10/14/2007 11:01 Transcribed: 10/14/2007 10:04 AMK Procedure Note Antonino Castelan MD - 10/14/2007 [facility] [address] [place], [place] [address] Admit Date: 10/14/2007 EJ BECKER Sex: F Admit Prov: GABRIELA TSANG Date: 1980 Primary Care Prov: PCP, UNKNOWN CMRN: [id number] [facility] [address] [place] [address] IMAGING SERVICES Ordering Prov: N/A Interpretation EXAMINATION: ULTRASOUND RETROPERITONEUM. 10/14/2007 Clinical History: Urinary frequency. Findings: The kidneys are normal in size and echotexture. Rightkidney measures 10.6 and the left kidney 10.4 cm in greatest dimension.There is no collecting system dilation or distinct renal calculus. Small 4 mmcyst projects from the superior right renal pole, of no clinicalsignificance. Impression: Sonographically normal kidneys and bladder. . Dictated by: Sage CASTELAN 10/14/2007 10:01 Electronically signed by: Sage CASTELAN 10/14/2007 11:01 Transcribed: 10/14/2007 10:04 AMK us Gabriela Tsang MD US ORDERABLES Final Result documented in this encounter Visit Diagnoses Diagnosis Urinary frequency Hematuria documented in this encounter
--- OUTSIDE RECORDS SUMMARY | 2024-12-28 21:19 | XMS_ITS | Clinical Summary ---
Author Organization [facility] Address [address] [place] [address] Phone Care Team Providers Care Tool And Die Repair Name Role Phone Rosario Brice MD Primary Care Provider [phone] Allergies No known active allergies Medications loratadine (CLARITIN) 10 mg tablet take 1 tablet (10MG) by oral route every day 0 03/30/2011 Active prenat vit 66-[id number]-[id number]-om 3,6 35-5-1.2-400 mg capsule Take by mouth daily. Active Active Problems No known active problems Immunizations Immunization Administration Dates Next Due Influenza, Unspecified 12/18/2017,01/02/2017 Surgical History Surgery Date Site/Laterality Comments OTHER SURGICAL HISTORY Tarsal tunnel release Medical History Medical History Date Comments Hx Other Medical Mitral Valve Pr olapse Hx Other Medical hematuria Family History Medical History Relation Name Comments Diabetes type II Father Diabetes -T ype II; Colon cancer Maternal Grandmother Cancer, colon; Other Mother relapsing polyc hondritis; /sjogrens; Breast cancer Paternal Grandmother Diabetes type II Paternal Grandmother Shira betes -Type II; Relation Name Status Comments Father Maternal Grandmother Mother Paternal Grandmother Social History Tobacco Use Types Packs/Day Years Used Date Smoking Tobacco: Never Smokeless Tobacco: Never Alcohol Use Standard Drinks/Week Comments Yes 0 (1 standard drink = 0.6 oz pur e alcohol) PHQ-2 Answer Date Recorded PHQ-2 Score 0 10/13/2018 Comments No Sex and Gender Information Value Date Recorded Sex Assigned at Not on file Legal Sex Female 1:13 PM JET WIPER Gender Identity Not on file Sexual Orientation Not on file Obstetrics History Para Term AB IAB SAB Ectopic Multiple Livin g Live Births 1 1 1 Date Outcome GA Total Labor Labor/2nd/3rd Weight Sex Type Anes PTL Arlin A1 A5 Name Clin Term Last Filed Vital Signs Vital Sign Reading Time Taken Comments Blood Pressure 118/64 02/23/2018 8:39 AM JET WIPER Pulse 78 02/23/2018 8:39 AM JET WIPER Temperature 36.6 C (97.8 F) 02/23/2018 8:39 AM JET WIPER Respiratory Rate 14 02/23/2018 8:39 AM JET WIPER Oxygen Saturation 99% 02/23/2018 8:39 AM JET WIPER Inhaled Oxygen Concentration - - Weight 67.6 kg (149 lb) 02/23/2018 8:39 AM JET WIPER Height 165.1 cm (5' 5) 02/23/2018 8:39 AM JET WIPER Body Mass Index 24.79 02/23/2018 8:39 AM JET WIPER Plan of Treatment Health Maintenance Due Date Last Done Comments Cervical Cancer Screening 1980 Varicella Vaccines (1 of 2 - 13+ 2-dose series) 1993 Hepatitis B Screening 1998 HPV Vaccines (1 - 3-dose SCDM series) 06/26/2007 Regular Well Visit/Exam 18-64 02/23/2019 02/23/2018, 02/23/2017 Depression Screening 03/17/2020 03/17/2019, 02/23/2018, 02/23/2017 Covid-19 Vaccine (2024- season) 2024 02/06/2021, 06/13/2020, 05/21/2020 Influenza Vaccine (#1) 2024 , 12/22/2021, 12/18/2019, Additional history exists Breast Cancer Screening-Mammogram 01/10/2025 01/11/2024, 12/15/2022, 02/11/2016 DTaP/Tdap/Td Vaccine (4 - Td or Tdap) 07/15/2028 07/15/2018, 11/04/2015, 11/03/2015 Hepatitis C Screening Completed 02/04/2016 Pneumococcal vaccine <65 Aged Out No longer eligible based on patient's age to complete this topic Procedures Procedure Name Priority Date/Time Associated Diagnosis Comments SCREENING MAMMOGRAM BILATERAL W ALEJANDRO Schedule Routine, Read Routine (OP Routine) 01/11/2024 1:04 PM JET WIPER Screening mammogram, encounter for SERUM HEPATITIS C AB Routine 02/04/2016 3:42 AM JET WIPER from Last 3 Months or Most Recently Relevant to Health Maintenance Results * Screening Mammogram Bilateral W Alejandro (01/11/2024 1:04 PM JET WIPER) Anatomical Region Laterality Modality Breast Bilateral Mammography Impressions 01/11/2024 1:53 PM JET WIPER BI-RADS ATLAS category (overall): 2 - Benign There is no mammographic evidence of malignancy. A 1 year screening mammogram is recommended. The patient has been or will be contacted. We recommend annual screening mammography for women at average risk of breast cancer beginning at age 40, based on guidelines of the [employer] (ACR Practice Parameter for the Performance of Screening and Diagnostic Mammography) and [employer]. For women with and elevated risk of breast cancer, please refer to the ACR Practice Parameter for specific screening recommendations. The patient will be entered into a reminder system with a target due date of 1 year for her next screening exam. Narrative 01/11/2024 1:53 PM JET WIPER Screening Mammogram Bilateral W Alejandro: 01/11/24 The study was acquired using full field digital technology and interpreted from soft copy. 2D digital mammographic views, as well as 3D digital tomosynthesis were performed in the CC and MLO projections. CLINICAL: Screening mammogram, encounter for. No relevant medical history has been documented for this patient. History of breast cancer in Paternal Grandmother. COMPARISONS: 12/29/2022 US Breast Left Limited 12/29/2022 Diagnostic Mammogram Left W Alejandro 12/15/2022 Screening Mammogram Bilateral W Alejandro 02/12/2016 Screening Mammogram Bilateral W Alejandro BREAST TISSUE: The breasts are heterogeneously dense, which may obscure small masses. FINDINGS: There is a stable small benign cyst in the left breast, characterized on prior ultrasound. There is no new suspicious finding in either breast on mammogram. us Self Screening Mammogram IMG MAMMO PROCEDURES Fi nal Result * Serum Hepatitis C ab (02/04/2016 3:42 AM JET WIPER) HCV ab Negative NEG CDR HISTOR ICAL RESULTS Serum 02/04/2016 3:42 AM JET WIPER Narrative CDR HISTORICAL RESULTS - 02/05/2016 4:22 AM JET WIPER Interpretive Data Positive results should be confirmed by a molecular method. If positive, a second separately collected sample should be submitted for Hepatitis C Virus (HCV) RNA Detection and Quantitation by Real-Time Reverse Police Liaison Officer-PCR (RT-PCR). Current interpretive data was last revised on 2015. us Rosario Brice MD LAB BLOOD ORDERABLES Final R esult CDR HISTORICAL RESULTS from Last 3 Months or Most Recently Relevant to Health Maintenance Insurance [facility] CHOICE PLUS [facility] HMO/PPO Address: [facility] [address] [place] [address] [facility] OPTIONS PPO [facility] HMO/PPO Address: [address] [address] [place] [address] [facility] Care Teams Tool And Die Repair Relationship Specialty Start Date End Date Rosario Brice MD [id number] [place] [address] PCP - General 03/31/12
--- OUTSIDE RECORDS SUMMARY | 2024-12-28 21:19 | XMS_ITS | Clinical Summary ---
Author Organization [facility] Address [address] [place] [address] Phone Care Team Providers Care Monitor Car Operator Name Role Phone Unavailable Primary Care Provider Unavailabl e Allergies Active Allergy Reactions Criticality Noted Date Comments Fluconazole Rash Low 08/26/2023 Medications estradioL (Imvexxy Maintenance Pack) 4 mcg Insert 1 tab per vagina twice weekly. 24 Each 3 4 Active estradioL (Imvexxy Starter Pack) 4 mcg insert, dose pack 1 capsule per vagina daily at night x 14 days. 14 Each 4 Active triamcinolone acetonide (KENALOG) 0.1 % Ointment Apply to affected area 2 times daily. 30 Gram 4 Active Active Problems Problem Noted Date Diagnosed Date delivery delivered 10/16/2018 Elevated BP without diagnosis of hypertension Resolved Problems Problem Noted Date Diagnosed Date Resolved Date Normal labor 10/16/2018 12/02/2018 Advanced maternal age, 1st p regnancy, third trimester 10/16/2018 12/02/2018 headache 12/01/19 21 Immunizations Immunization Administration Dates Next Due (ADACEL/BOOSTRIX)(10 YR UP) TDAP VACCINE, 0.5ML, IM 07/15/2018 Family History Medical History Relation Name Comments Colon Cancer Maternal Grandfather Colon Cancer Other COUSIN Colon Cancer Paternal Grandmother Relation Name Status Comments Maternal Grandfather Other Paternal Grandmother Social History Tobacco Use Types Packs/Day Years Used Date Smoking Tobacco: Never Smokeless Tobacco: Never Alcohol Use Standard Drinks/Week Comments Not Currently 0 (1 standard drink = 0.6 oz pur e alcohol) Feeling Safe Answer Date Recorded Within the last year, have y ou been afraid of your partner or ex-partner? Patient declined 10/20/2018 Within the last year, have y ou been humiliated or emotionally abused in other ways by your partner or ex-partner? Patient declined 10/20/2018 Within the last year, have y ou been kicked, hit, slapped, or otherwise physically hurt by your partner or ex-partner? Patient declined 10/20/2018 Within the last year, have y ou been raped or forced to have any kind of sexual activity by your partner or ex-partner? Patient declined 10/20/2018 Social Connections Answer Date Recorded In a typical week, how many times do you talk on the phone with family, friends, or neighbors? Patient declined 10/20/2018 How often do you get togethe r with friends or relatives? Patient declined 10/20/2018 How often do you attend mormonism or jewish serv ices? Patient declined 10/20/2018 Do you belong to any clubs o r organizations such as mormonism groups, unions, fraternal or athletic groups, or school groups? Patient declined 10/20/2018 How often do you attend meet ings of the clubs or organizations you belong to? Patient declined 10/20/2018 Are you , , di vorced, , never , or living with a partner? Patient declined 10/20/2018 Financial Resource Strain Answer Date R ecorded How hard is it for you to pa y for the very basics like food, housing, medical care, and heating? Patient declined 10/20/2018 Food Insecurity Answer Date Recorded Within the past 12 months, y ou worried that your food would run out before you got the money to buy more. Patient declined Within the past 12 months, t he food you bought just didn't last and you didn't have money to get more. Patient declined Transportation Needs Answer Date Record ed In the past 12 months, has l ack of transportation kept you from medical appointments or from getting medications? Patient declined 10/20/2018 In the past 12 months, has l ack of transportation kept you from meetings, work, or from getting things needed for daily living? Patient declined 10/20/2018 Feeling Safe Answer Date Recorded Are you in a relationship wi th someone who hurts you emotionally and/or physically? No 02/09/2023 Comments No Sex and Gender Information Value Date Recorded Sex Assigned at Female 08/05/2023 2:59 AM CDT Legal Sex Female 2:56 AM TYPING SECRETARY Gender Identity Female 08/05/2023 2:59 AM CDT Sexual Orientation Straight 08/05/2023 2: 59 AM CDT Last Filed Vital Signs Vital Sign Reading Time Taken Comments Blood Pressure 112/60 08/05/2023 1:42 PM CDT Pulse 80 02/09/2023 8:20 AM TYPING SECRETARY Temperature 36.1 C (97 F) 02/09/2023 7:59 AM TYPING SECRETARY Respiratory Rate 18 02/09/2023 8:20 AM TYPING SECRETARY Oxygen Saturation 93% 02/09/2023 8:20 AM TYPING SECRETARY Inhaled Oxygen Concentration - - Weight 72.1 kg (159 lb) 08/05/2023 1:42 PM CDT Height 165.1 cm (5' 5) 08/05/2023 1:42 PM CDT Body Mass Index 26.46 08/05/2023 1:42 PM CDT Plan of Treatment Health Maintenance Due Date Last Done Comments HEPATITIS B VACCINES (1 of 3 - 19+ 3-dose series) 06/26/1999 HPV VACCINES (1 - 3-dose SCD M series) 06/26/2007 BREAST CANCER SCREENING 12/30/2023 12/30/19 23, 12/15/2022, 12/15/2022, Additional history exists INFLUENZA VACCINE (#1) 2024 , 12/01/2022, 12/02/2018, Additional history exists PAP SMEAR 01/12/2026 01/12/2023, 1009/2020, 12/02/2018 CERVICAL CANCER SCREENING 01/13/2028 HPV/Cotest (21-29) 01/13/2028 01/12/2023, 1 , 12/02/2018 HPV/Cotest (30-65) 01/13/2028 01/12/2023, 1 , 12/02/2018 DTAP/TDAP/TD VACCINES (3 - T d or Tdap) 07/15/2028 07/15/2018, 11/04/2015 Medical Devices Implanted Type Area Lecturer In Computer Science Device Identifier Shelf Expiration Date Model / Serial / Lot Hemostatic Surgicel 4x8in 1951 - [id number] Implanted:Qty: 1 on 10/16/2018 by Judy Montiel MD at [facility] Hemostatic [employer] 05/22/20211951 / / [id number] Procedures Procedure Name Priority Date/Time Associated Diagnosis Comments CERV/VAG CYTO AGE BASED SCREEN PAP Routine 01/12/2023 4:31 PM TYPING SECRETARY Well woman exam with routine gynecological exam from Last 3 Months or Most Recently Relevant to Health Maintenance Results * CERV/VAG CYTO AGE BASED SCREEN PAP (01/12/2023 4:31 PM TYPING SECRETARY) COMMENT (PAP): [facility] Comment: This order for age-based cervical cancer and STI screening follows ACOG guidelines(PB 168, 140, MYR175). See individual assays for performing site location. CLINICAL INFORMATION [facility] Comment:Routine exam LAST MENSTRUAL PERIOD [facility] Comment:01/12/2023 PREV PAP: [facility] Comment:NONE GIVEN PREV BX: [facility] Comment:NONE GIVEN SOURCE [facility] Comment:Endocervix ADEQUACY: [facility] Comment: Satisfactory for evaluation. Endocervical/transformation zone component present. PAP INTERP [facility] Comment: Cytology Results: Negative for intraepithelial lesion or malignancy. COMMENT (PAP TEST) [facility] [place] Comment: This case could not be evaluated with computer assisted technology. The slide was manually screened according to routine procedures. SENIOR EDITOR: Phillip [facility] [place] Comment: MEF, CT(ASCP) CT screening location: [place] [address] [address] [place] [address] REVIEW SENIOR EDITOR: Carol Feliz Comment: CORDELIA, CT(ASCP) CT screening location: [place] [address] [address] [place] [address] Lloyd Feliz Comment: EXPLANATORY NOTE: The Pap is a screening test for cervical cancer. It is not a diagnostic test and is subject to false negative and false positive results. It is most reliable when a satisfactory sample, regularly obtained, is submitted with relevant clinical findings and history, and when the Pap result is evaluated along with historic and current clinical information. HPV E6/E7 Not Detected Not Detected [facility] Comment: Methodology: Equipment Engineer-Mediated Amplification This assay detects E6/E7 viral messenger RNA (mRNA) from 14 high-risk HPV types (16,18,31,33,35,39,45,51,52,56,58,59,66,68). Cervical sources are required for HPV testing. If a vaginal source from a patient who has had a total hysterectomy with removal of cervix was submitted, please contact the testing laboratory for alternative testing options. For additional information, please refer to http://education.[employer]/faq/VWK843g3 (This link if provided for information/ educational purposes only.) Test Performed at: [facility] [address] [address] [id number] [address] [facility] Genital SWAB OF ENDOCERVIX / Unknown 01/12/2023 4:31 PM TYPING SECRETARY 01/13/2023 1:28 AM TYPING SECRETARY us Federica John MD PATHOLOGY/CYTOLOGY ORD ERABLES Final Result [facility] [phone] [facility] [id number] [address] [place] [phone] from Last 3 Months or Most Recently Relevant to Health Maintenance Insurance [employer] [facility] [id number] Advance Directives For more information, please contact: [phone] * Full Code (Latest Code Status on File) Date Activated Date Inactivated Comments 02/09/2023 7:09 AM 02/09/2023 10:55 AM * Full Code Date Activated Date Inactivated Comments 10/20/2018 6:48 PM 10/20/2018 10:39 PM * Full Code Date Activated Date Inactivated Comments 10/17/2018 1:34 AM 10/19/2018 9:30 PM * Full Code Date Activated Date Inactivated Comments 10/16/2018 6:23 AM 10/17/2018 1:34 AM
== END 2024-12-28 20:02 | disposition home or self-care (01) ==
PROVIDERS: Emergency Provider Nurse Practitioner
DX: R30.0 Dysuria (principal)
CPT/HCPCS: 87086; 99213; G0463